=== PATIENT | male | born 1985 | race Caucasian/White ===

== ENCOUNTER 2016-10-23 17:10 | Emergency (ER) | payer MEDICAID ==
[2016-10-23 19:14] VITALS: BP 129/85
== END 2016-10-23 19:25 | disposition short-term general hospital (02) ==
LOC: ED 17:10
DX: S61.011A Laceration without foreign body of right thumb without damage to nail, initial encounter (principal); X58.XXXA Exposure to other specified factors, initial encounter; Y93.89 Activity, other specified; Y99.8 Other external cause status; Y92.89 Other specified places as the place of occurrence of the external cause
CPT/HCPCS: 90715; J3490